=== PATIENT | male | born 1985 | race Caucasian/White ===

== ENCOUNTER 2022-10-15 14:24 | Outpatient (CLI) | payer MEDICARE, MEDICAID, SELFPAY ==
--- NOTE | 2022-10-15 15:00 | CRLHL7_ITS ---
For Patients: As a result of the Century Cures Act, medical imaging exams and procedure reports are released immediately into your electronic medical record. You may view this report before your referring provider. If you have questions, please contact your health care provider. Indication: BILAT BACK PAIN. HX OF STONES Technique: Noncontrast CT abdomen and pelvis Please note that all CT scans at this facility use dose modulation, iterative reconstruction, and/or weight-based dosing when appropriate to reduce radiation dose to as low as reasonably achievable. Comparison: 09/02/2021 Findings: Lung bases are clear. Stable hiatal hernia measuring 5 cm. Adrenal glands normal. Normal spleen. Diffuse low attenuation of the hepatic parenchyma is similar. Multiple noncalcified gallstones are present within the gallbladder lumen measuring up to 9 millimeters. No biliary obstruction. The pancreas is normal. Punctate calcification within the midportion of the right kidney measuring 3 millimeters. 3 millimeter stones also present in the upper pole of the right kidney. Nonobstructing stone in the upper pole of the left kidney is present measuring 3 millimeters. Additional stone in the midportion measuring 3 millimeters. Punctate 1-2 millimeter stones in the lower pole of the left kidney. No ureteral stone. No hydronephrosis or hydroureter. No periureteral or perinephric stranding. No bladder stone. Prostate calcifications. No bowel obstruction or free air. No free fluid or abscess. No evidence of diverticulitis. The appendix is within normal limits. Normal small bowel. Food products present within the stomach. No intra-abdominal or intrapelvic adenopathy. A few scattered bone islands are present in the pelvis. Impression: Multiple bilateral punctate nonobstructing renal stones measuring up to 3 millimeters. Chronic cholelithiasis. Hepatic steatosis. Please note that all CT scans at this facility use dose modulation, iterative reconstruction, and/or weight-based dosing when appropriate to reduce radiation dose to as low as reasonably achievable. Dictated by Deondre Rivas MD @ 10/16/2022 9:17:01 AM (Electronically Signed)
== END 2022-10-15 14:25 | disposition home or self-care (01) ==
LOC: CT 14:26
PROVIDERS: PCP Family Medicine; Visit Provider Family Medicine
DX: M54.9 Dorsalgia, unspecified (principal); N20.0 Calculus of kidney; K80.20 Calculus of gallbladder without cholecystitis without obstruction; K76.0 Fatty (change of) liver, not elsewhere classified
CPT/HCPCS: 74176

== ENCOUNTER 2022-12-11 14:17 | Outpatient (CLI) | payer MEDICARE, MEDICAID, SELFPAY | END 2022-12-11 14:18 | disposition home or self-care (01) | LOC: AMB 12-19 20:57 | PROVIDERS: PCP Family Medicine; Visit Provider Family Medicine | DX: R07.89 Other chest pain (principal) | CPT/HCPCS: A0998 ==

== ENCOUNTER 2022-12-11 15:13 | Outpatient (CLI) | payer MEDICARE, MEDICAID, SELFPAY | END 2022-12-11 15:14 | disposition home or self-care (01) | LOC: AMB 12-12 13:24 | PROVIDERS: PCP Family Medicine; Visit Provider Family Medicine | DX: R06.09 Other forms of dyspnea (principal) | CPT/HCPCS: A0425; A0427; A0998 ==

== ENCOUNTER 2022-12-11 15:52 | Emergency (ER) | payer MEDICARE, MEDICAID, SELFPAY ==
[2022-12-11 15:58] VITALS: BP 114/82; PULSE 89; RESP 18; TEMP 36.8; O2SAT 96; BMI 29.4
--- NOTE | 2022-12-11 18:50 | PC.NURSE ---
pt signed refusal of care, left ER with brother
[2022-12-11 19:20] LABS: Troponin, Point-of-Care* 0.03 ng/ml (0.01-0.04)
== END 2022-12-11 18:43 | disposition left against medical advice (07) ==
LOC: ED 18:44
PROVIDERS: PCP Family Medicine
DX: Z53.21 Procedure and treatment not carried out due to patient leaving prior to being seen by health care provider (principal)
CPT/HCPCS: 84484; 93005

== ENCOUNTER 2022-12-13 09:30 | Outpatient (CLI) | payer MEDICARE, MEDICAID, SELFPAY | END 2022-12-13 09:31 | disposition home or self-care (01) | LOC: AMB 12-14 11:24 | PROVIDERS: PCP Family Medicine; Visit Provider Family Medicine | DX: R07.89 Other chest pain (principal) | CPT/HCPCS: A0425; A0427 ==

== ENCOUNTER 2023-04-09 14:25 | Outpatient (CLI) | payer MEDICARE, MEDICAID, SELFPAY ==
--- NOTE | 2023-04-09 15:00 | CRLHL7_ITS ---
For Patients: As a result of the Century Cures Act, medical imaging exams and procedure reports are released immediately into your electronic medical record. You may view this report before your referring provider. If you have questions, please contact your health care provider. Indication: LT LATERAL WRIST LUMP W/PAIN Technique: Grayscale and color Doppler ultrasound of the left lateral wrist performed. Comparison: None Findings: There is a cystic anechoic structure within the area of concern measuring 1.4 x 0.9 x 0.7 cm. This is located adjacent to the radial artery and vein. Impression: 1.4 x 0.9 x 0.7 cm nonvascular cyst in the left lateral wrist soft tissues. Dictated by Deondre Rivas MD @ 04/09/2023 3:37:48 PM (Electronically Signed)
== END 2023-04-09 14:26 | disposition home or self-care (01) ==
LOC: US 14:27
PROVIDERS: PCP Family Medicine; Visit Provider Surgery
DX: M79.89 Other specified soft tissue disorders (principal); M25.532 Pain in left wrist
CPT/HCPCS: 76882

== ENCOUNTER 2023-10-24 11:26 | Outpatient (CLI) | payer MEDICARE, MEDICAID, SELFPAY | END 2023-10-24 11:27 | disposition home or self-care (01) | PROVIDERS: PCP Family Medicine; Visit Provider Family Medicine | DX: I10 Essential (primary) hypertension (principal) | CPT/HCPCS: 80048; 85025 ==

== ENCOUNTER 2024-04-24 16:35 | Outpatient (CLI) | payer MEDICARE, MEDICAID, SELFPAY ==
[2024-04-28 22:17] LABS: Calculi Mass 28 mg
== END 2024-04-24 16:36 | disposition home or self-care (01) ==
PROVIDERS: PCP Family Medicine; Visit Provider Family Medicine
DX: Z00.00 Encounter for general adult medical examination without abnormal findings (principal); N20.0 Calculus of kidney; I10 Essential (primary) hypertension; N50.819 Testicular pain, unspecified; Z13.6 Encounter for screening for cardiovascular disorders
CPT/HCPCS: 80048; 80061; 82365

== ENCOUNTER 2024-05-13 03:40 | Outpatient (CLI) | payer MEDICARE, MEDICAID, SELFPAY | END 2024-05-13 03:41 | disposition home or self-care (01) | LOC: AMB 05-16 05:32 | PROVIDERS: PCP Family Medicine; Visit Provider Family Medicine | DX: R10.9 Unspecified abdominal pain (principal) | CPT/HCPCS: A0425; A0433 ==

== ENCOUNTER 2024-05-13 04:09 | Emergency (ER) | payer MEDICARE, MEDICAID, SELFPAY ==
--- NOTE | 2024-05-13 04:17 | ED_ITS ---
HPI - General Adult General Time Seen by Provider: 04:17 Date Seen: 05/13/24 Chief complaint: Flank Pain Stated complaint: Kidney pain Time Seen by Provider: 05/13/24 04:17 Source: patient, EMS, RN notes reviewed and old records reviewed Mode of arrival: ambulatory Limitations: no limitations History of Present Illness HPI narrative: 39-year-old male who comes in today with flank pain. Patient notes a couple hours of right flank pain, no dysuria, no fever. Has not taken anything for this. Nausea without vomiting. Related Data Previous Rx's ?Medication ?Instructions ?Recorded metoprolol succinate 100 mg 100 mg PO QDAY #90 tabs 04/24/24 tablet,extended release 24 hr Allergies Allergy/AdvReac Type Severity Reaction Status Date / Time lisinopril Allergy Severe chest Verified 04/24/24 16:20 pain, blurred vision codeine Allergy Unknown Verified 04/24/24 16:20 ibuprofen Allergy Unknown Anal Verified 04/24/24 16:20 Bleeding haloperidol [From Haldol] Allergy Verified 04/24/24 16:20 [facility] Medical History (Updated 05/13/24 @ 04:47 by Rui Leon MD) Primary hypertension ?I10 - Essential (primary) hypertension (ICD-10) MICHELLE (generalized anxiety disorder) ?F41.1 - Generalized anxiety disorder (ICD-10) Chronic constipation ?K59.09 - Other constipation (ICD-10) Tobacco abuse ?Z72.0 - Tobacco use (ICD-10) Scoliosis ?M41.9 - Scoliosis, unspecified (ICD-10) History of prostatitis ?Z87.438 - Personal history of other diseases of male genital organs (ICD-10) History of depression ?Z86.59 - Personal history of other mental and behavioral disorders (ICD-10) Gastroesophageal reflux disease ?K21.9 - Gastro-esophageal reflux disease without esophagitis (ICD-10) Dental caries ?K02.9 - Dental caries, unspecified (ICD-10) Calculus of kidney ?N20.0 - Calculus of kidney (ICD-10) Autism spectrum disorder ?F84.0 - Autistic disorder (ICD-10) Surgical History (Updated 04/18/23 @ 13:32 by Cathy Soler) H/O retained foreign body fully removed (03/13/21) ?Z87.821 - Personal history of retained foreign body fully removed (ICD-10) Status post tonsillectomy and adenoidectomy ?Z90.89 - Acquired absence of other organs (ICD-10) History of cystoscopy ?Z98.890 - Other specified postprocedural states (ICD-10) Family History (Updated 09/20/22 @ 09:39 by Mara Oreilly) Mother Diabetes Father Prostate cancer Social History (Updated 02/08/24 @ 18:59 by Deondre Treadwell MD) Narrative: single, smoker, no EtOH, does not drive, lives with mom Smoking Status: Current every day smoker Little interest or pleasure in doing things: several days Feeling down, depressed, or hopeless: not at all Exam Narrative: Exam Narrative: General: Well-developed and well-nourished, no acute distress Head: Atraumatic and normocephalic Eyes: Pupils are equal reactive, extraocular motions intact, conjunctiva clear ENT: External nose and ears are normal, posterior pharynx without erythema or exudate Neck: No midline cervical tenderness, full spontaneous range of motion the neck, trachea midline, no adenopathy Heart: Regular rate and rhythm no murmurs or thrills Lungs: Clear to auscultation bilaterally without wheezes or crackles Abdomen: Soft, nontender, nondistended with active bowel sounds. Right CVA tenderness Musculoskeletal: No tenderness, deformity, or edema Neurologic: Awake, alert, and oriented x3, no gross focal neurologic deficits, cranial nerves intact as tested Psych: Mood and affect are appropriate Skin: No rashes Const: Vital Signs, click to edit/add: Vital Signs - 24 hr 05/13/24 04:24 05/13/24 04:25 Temperature 97.7 F 98.1 F Pulse Rate [Pulse Oximeter] 73 Respiratory Rate 18 Blood Pressure [Ri ght Upper Arm] 152/110 H Pulse Oximetry 95 Oxygen Delivery Me thod Room Air Course Course ED Course: Patient seen examined, reviewed prior clinic visit from April 24 which was for kidney stone, previously had been admitted to [facility] and at the time of the visit on April 24 had recently passed a stone. CT scan ordered independently interpreted by me with stone in the renal pelvises bilaterally as well as left-sided hydronephrosis and hydroureter with a 3-4 mm stone in the mid ureter on the right. Reevaluation(s) Time of Reevaluation #1: 05:28 Reevaluation #1: CBC and basic panel in panel interpreted by me negative for acute findings. Vital Signs Vital signs: Initial Vital Signs Temperature 97.7 F 05/13/24 04:24 Temperature Source Temporal Artery Scan 05/13/24 04:24 Pulse Rate 73 05/13/24 04:24 Respiratory Rate 18 05/13/24 04:24 Blood Pressure 152/110 H 05/13/24 04:24 Blood Pressure Mean 124 H 05/13/24 04:24 Blood Pressure Position Sitting 05/13/24 04:24 Pulse Oximetry 95 05/13/24 04:24 Oxygen Delivery Method Room Air 05/13/24 04:24 Vital Signs Temperature 97.7 F 05/13/24 04:24 Pulse Rate 73 05/13/24 04:24 Respiratory Rate 18 05/13/24 04:24 Blood Pressure 152/110 H 05/13/24 04:24 Pulse Oximetry 95 05/13/24 04:24 Oxygen Delivery Method Room Air 05/13/24 04:24 Temperature 98.1 F 05/13/24 04:25 Pulse Rate 73 05/13/24 04:24 Respiratory Rate 18 05/13/24 04:24 Blood Pressure 152/110 H 05/13/24 04:24 Pulse Oximetry 95 05/13/24 04:24 Oxygen Delivery Method Room Air 05/13/24 04:24 Medications Administered Medications: Discontinued Medications Generic Name Dose Route Start Last Admin Trade Name Freq PRN Reason Stop Dose Admin Ketorolac Tromethamine 15 mg 05/13/24 04:19 05/13/24 04:25 Ketorolac 15 Mg/Ml Inj IVP 05/13/24 04:20 15 mg ONCE ONE Administration Medical Decision Making Lab Data Labs: Lab Results 05/13/24 05/13/24 Range/Units 04:15 04:45 WBC 10.95 (4.50-11.00) K/uL RBC 4.75 (4.30-5.90) m/uL Hgb 14.2 (13.5-17.5) gm/dL Hct 42.6 (37.0-53.0) % MCV 90 (80-100) fL MCH 30 (26-34) pg MCHC 33 (32-36) gm/dL RDW Coeff of Lesley 11.9 (11.5-15.5) % Plt Count 294 (140-440) K/uL Neut % (Auto) 79.4 H (42.0-72.0) % Lymph % (Auto) 14.2 L (20-44) % Conway % (Auto) 3.5 (0.0-11.0) % Eos % (Auto) 1.8 (0.0-7.0) % Baso % (Auto) 0.2 (0.0-3.0) % Neut # (Auto) 8.70 H (1.7-7.0) K/uL Lymph # (Auto) 1.60 (0.90-2.90) K/uL Conway # (Auto) 0.40 (0.00-0.90) K/UL Eos # (Auto) 0.20 (0.00-0.50) K/uL Baso # (Auto) 0.02 (0.00-0.30) K/uL Abs Immat Gran (auto) 0.10 (0.00-0.30) K/uL Imm/Tot Granulo (auto) 0.9 % Sodium 138 (135-149) mmol/L Potassium 4.3 (3.6-5.1) mmol/L Chloride 108 (96-114) mmol/L Carbon Dioxide 24 (20-32) mmol/L Anion Gap 6 L (7-15) mEq/L BUN 15 (5-24) mg/dL Creatinine 0.8 (0.5-1.5) mg/dL Estimated Creat Clear 118.20 Estimated GFR 117 ml/min Glucose 113 (60-115) mg/dL Calcium 8.4 (8.4-10.6) mg/dL Urine Color Yellow (Yellow) Urine Appearance Slightly Cloudy A (Clear) Urine pH 5.5 (5.0-8.5) Ur Specific Patterson >= 1.030 (1.000-1.030) Urine Protein 1+ A (Negative) Urine Glucose (UA) Negative (Negative) Urine Ketones Negative (Negative) Urine Blood 3+ A (Negative) Urine Nitrite Negative (Negative) Urine Bilirubin Negative (Negative) Urine Urobilinogen 0.2 (0.2-1.0) Ur Leukocyte Esterase Negative (Negative) Urine RBC 10-25 A (0-2) Urine WBC 2-5 (0-5) Ur Squamous Epith Cells Moderate A (None-Few) Urine Bacteria Few A (None) Discharge Plan Discharge Clinical Impression: Calculus of right ureter Patient Disposition: Home, Self-Care Condition: Stable Instructions: Ureteral Stones (ED) Additional Instructions: Take Toradol every six hours alternating with Tylenol every six hours Take oxycodone as needed for pain not controlled with Tylenol and Toradol Call [facility] ([phone] or [phone]) or [facility] ( ) to schedule an appointment for follow-up in 2-3 days Follow-up with your primary care provider this week as well Activity Level: Activity as Tolerated Discharge Diet: Regular Prescriptions: No Action metoprolol succinate 100 mg tablet extended release 24 hr 100 mg PO QDAY Qty: 90 1RF Follow Up/Referrals: Deondre Treadwell MD [Primary Care Provider] - Stand Alone Forms: [employer] Info Instructions
--- NOTE | 2024-05-13 04:19 | CRLHL7_ITS ---
For Patients: As a result of the Century Cures Act, medical imaging exams and procedure reports are released immediately into your electronic medical record. You may view this report before your referring provider. If you have questions, please contact your health care provider. INDICATION: FLANK PAIN, HX OF KIDNEY STONES TECHNIQUE: CT abdomen and pelvis without contrast, stone protocol. COMPARISON: None. FINDINGS: Kidney/ureters: Right-sided obstructive uropathy with a 4 millimeter ureteral calculus within the mid ureter, resulting in moderate hydroureteronephrosis and periureteral/perinephric inflammation. Additional small bilateral renal calculi are noted. Liver/gallbladder/bile ducts: The liver is normal in size, shape and attenuation. Cholelithiasis. No biliary dilatation. Spleen/pancreas/adrenal glands: The spleen, adrenal glands and pancreas are within normal limits. GI tract: No bowel obstruction. Normal appendix. Abdominal wall/omentum/peritoneum: No free air or significant free fluid. No mass or inflammation. Tiny fat containing umbilical hernia. Lymph nodes: No lymphadenopathy. Pelvis: Prostate calcifications. Lower chest: Unremarkable. IMPRESSION: 1. Right-sided obstructive uropathy with a 4 millimeter ureteral calculus within the mid ureter, resulting in moderate hydroureteronephrosis and periureteral/perinephric inflammation. Additional small bilateral renal calculi are noted. 2. Cholelithiasis. Please note that all CT scans at this facility use dose modulation, iterative reconstruction, and/or weight-based dosing when appropriate to reduce radiation dose to as low as reasonably achievable. Dictated by Bib Soto MD @ 05/13/2024 5:41:45 AM (Electronically Signed)
[2024-05-13 04:23] LABS: Appearance Urine Slightly Cloudy (Clear); Bilirubin Urine Negative (Negative); Blood Urine 3+ (Negative); Color Urine Yellow (Yellow); Glucose Urine Negative (Negative); Ketones Urine Negative (Negative); Leukocyte Esterase Urine Negative (Negative); Nitrite Urine Negative (Negative); Protein Urine 1+ (Negative); Specific Gravity Urine >= 1.030 (1.000-1.030); Urobilinogen Urine 0.2 (0.2-1.0); pH Urine 5.5 (5.0-8.5)
[2024-05-13 04:24] VITALS: BP 152/110; PULSE 73; RESP 18; TEMP 36.5; O2SAT 95; BMI 31.3
[2024-05-13 04:25] VITALS: TEMP 36.7
[2024-05-13] MEDS: KETOROLAC 15 MG/ML inj IVP (04:25)
[2024-05-13 04:38] LABS: Bacteria Urine Few; Squamous Epithelial Cell Urine Moderate (None-Few)
[2024-05-13 04:52] LABS: Basophils Absolute Auto 0.02 K/uL (0.00-0.30); Basophils Percent Auto 0.2 % (0.0-3.0); Eosinophils Percent Auto 1.8 % (0.0-7.0); Hematocrit 42.6 % (37.0-53.0); Hemoglobin* 14.2 gm/dL (13.5-17.5); Immature Granulocytes Pct Auto 0.9 %; Lymphocytes Percent Auto 14.2 % (20-44); Mean Corpuscular HGB Conc 33 gm/dL (32-36); Mean Corpuscular Hemoglobin 30 pg (26-34); Mean Corpuscular Volume 90 fL (80-100); Monocytes Percent Auto 3.5 % (0.0-11.0); Neutrophils Percent Auto 79.4 % (42.0-72.0); Platelet Count* 294 K/uL (140-440); RDW Coefficient of Variation % 11.9 % (11.5-15.5); Red Blood Count 4.75 m/uL (4.30-5.90); White Blood Count* 10.95 K/uL (4.50-11.00)
[2024-05-13 04:56] LABS: Slide Review Reflex No
[2024-05-13 05:00] VITALS: BP 146/102; PULSE 69; RESP 16; O2SAT 96
[2024-05-13 05:05] LABS: Chloride* 108 mmol/L (96-114); Sodium* 138 mmol/L (135-149)
[2024-05-13 05:06] LABS: Potassium* 4.3 mmol/L (3.6-5.1)
[2024-05-13 05:08] LABS: Anion Gap 6 mEq/L (7-15); Carbon Dioxide* 24 mmol/L (20-32); Creatinine* 0.8 mg/dL (0.5-1.5); Estimated Glomerular Filt Rate 117 ml/min
[2024-05-13 05:09] LABS: Blood Urea Nitrogen* 15 mg/dL (5-24); Calcium* 8.4 mg/dL (8.4-10.6); Glucose* 113 mg/dL (60-115)
[2024-05-13 05:30] VITALS: PULSE 72; RESP 16; O2SAT 98
[2024-05-13 05:55] VITALS: O2SAT 97
== END 2024-05-13 08:13 | disposition home or self-care (01) ==
LOC: ED 04:53
PROVIDERS: Emergency Provider Family Medicine; PCP Family Medicine
DX: N20.1 Calculus of ureter (principal)
CPT/HCPCS: 36415; 74176; 80048; 81001; 85025; 87086; 94761; 96374; 99284; J1885

== ENCOUNTER 2025-05-02 11:31 | Outpatient (CLI) | payer MEDICARE, MEDICAID, SELFPAY | END 2025-05-02 11:32 | disposition home or self-care (01) | PROVIDERS: PCP Family Medicine; Visit Provider Internal Medicine | DX: R10.9 Unspecified abdominal pain (principal); R30.0 Dysuria | CPT/HCPCS: A0425; A0427 ==

== ENCOUNTER 2025-05-02 12:03 | Emergency (ER) | payer MEDICARE, MEDICAID, SELFPAY ==
--- OUTSIDE RECORDS SUMMARY | 2025-05-02 12:05 | XMS_ITS | Clinical Summary ---
Author Organization [facility] Address [address] [place] [address] Care Team Providers Care [employer] Name Role Phone Clinics, Leigha Primary Care Provider [phone] Clinics, Enti Unavailable Allergies Active Allergy Reactions Criticality Noted Date Comments Codeine *Unknown 08/26/2015 Ibuprofen Bleeding 08/26/2015 Medications CLONIDINE ORAL Take by mouth. Active cloNIDine HCl (CATAPRES) 0.1 mg tablet 09/12/20 15 Active pramipexole (MIRAPEX) 0.125 mg tablet 08/18/20 15 Active oxyCODONE-acetamin ophen, 5-325 mg, (PERCOCET) 5-325 mg per tabletIndications: Bilateral low back pain, with sciatica presence unspecified Take 1-2 tablets by mouth every 6 hours if needed for Pain. Max acetaminophen dose: 4000mg in 24 hrs. 10 tablet 0 11/22/20 15 Active ondansetron (ZOFRAN ODT) 4 mg disintegrating tabletIndications: Nausea and vomiting, unspecified intactability, vomiting of unspecified type Place 1 tablet on the tongue every 8 hours if needed for Nausea/Vomiting. 15 tablet 0 11/22/20 15 Active lisinopril-hydroch lorothiazide (10-12.5 mg) tablet (PRINZIDE; ZESTORETIC) Take 1 Tablet by mouth once daily. 11/21/20 22 Active omeprazole (PRILOSEC) 20 mg Delayed-Release capsule Take 20 mg by mouth once daily before a meal. 10/25/20 22 Active cyclobenzaprine (FLEXERIL) 10 mg tabletIndications: Acute pain of right shoulder Take 1 Tablet (10 mg) by mouth 3 times daily if needed for Muscle Spasm. 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 Gender Identity Not on file Sexual Orientation Not on file Obstetrics History Last Filed Vital Signs Vital Sign Reading Time Taken Comments Blood Pressure 115/83 12/13/2022 11:01 AM PRODUCT ACCOUNTANT Pulse 79 12/13/2022 11:55 AM PRODUCT ACCOUNTANT Temperature 36.8 C (98.2 F) 12/13/2022 10:16 AM PRODUCT ACCOUNTANT Respiratory Rate 16 12/13/2022 10:16 AM PRODUCT ACCOUNTANT Oxygen Saturation 99% 12/13/2022 11:55 AM PRODUCT ACCOUNTANT Inhaled Oxygen Concentration - - Weight 87.5 kg (193 lb) 12/13/2022 10:16 AM PRODUCT ACCOUNTANT Height 170.2 cm (5' 7) 12/13/2022 10:16 AM PRODUCT ACCOUNTANT Body Mass Index 30.23 12/13/2022 10:16 AM PRODUCT ACCOUNTANT Plan of Treatment Health Maintenance Due Date Last Done Comments Tdap 1998 Depression screening for age 12+ 1999 HIV for age 15-65 2002 BMI (ht and wt on same day) for age 18+ 2005 Hepatitis C screening for ag e 18-79 2005 Hepatitis B series for 19+ ( 1 of 3 - 19+ 3-dose series) 2006 Tetanus booster 2007 Lipids for age 35-44 2022 COVID-19 vaccine series (2023- season) 2024 Influenza Vaccine (Season Ended) 2025 Pneumococcal series for age 6-49 Aged Out No longer eligible based on patient's age to complete this topic Insurance [address] [place] [id number] MEDICARE PB ONLY [address] [place] [id number] MEDICARE PART B HB ONLY [facility] Care Teams As[employer] Relationship Specialty Start Date End Date Clinics, Leigha PCP - General 08/26/15 Clinics, Leigha 08/26/15
[2025-05-02 12:08] VITALS: BP 155/99; PULSE 80; RESP 20; TEMP 36.4; O2SAT 96; BMI 27.4
--- NOTE | 2025-05-02 12:17 | ED.GENADULT ---
HPI - General Adult General Chief complaint: Flank Pain Stated complaint: L flank pain Time Seen by Provider: 05/02/25 12:11 History of Present Illness HPI narrative: Patient is a 40-year-old gentleman with a history of kidney stones who presents with left flank pain for 48 hours. His pain is severe and radiates to his groin. He has had some mild nausea and vomiting but no diarrhea no fever no fevers no chills no night sweats no cough no shortness of breath. Pain is consistent with previous episodes of renal lithiasis. Related Data Previous Rx's ?Medication ?Instructions ?Recorded amoxicillin 875 mg tablet 875 mg PO BID #20 tabs 10/20/24 nabumetone 500 mg tablet 500 mg PO BID #60 tabs 10/20/24 lorazepam 1 mg tablet 1 mg PO QDAY PRN dental appt #5 02/04/25 tabs metoprolol succinate 100 mg 100 mg PO QDAY #90 tabs 03/29/25 tablet,extended release 24 hr Allergies Allergy/AdvReac Type Severity Reaction Status Date / Time lisinopril Allergy Severe chest Verified 10/20/24 13:01 pain, blurred vision codeine Allergy Unknown Verified 10/20/24 13:01 ibuprofen Allergy Unknown Anal Verified 10/20/24 13:01 Bleeding haloperidol (From Haldol) Allergy Verified 10/20/24 13:01 Review of Systems Status of ROS: Reports: 10 or more systems reviewed and unremarkable except as noted in History and below [facility] Medical History Primary hypertension ?I10 - Essential (primary) hypertension (ICD-10) MICHELLE (generalized anxiety disorder) ?F41.1 - Generalized anxiety disorder (ICD-10) Chronic constipation ?K59.09 - Other constipation (ICD-10) Tobacco abuse ?Z72.0 - Tobacco use (ICD-10) Scoliosis ?M41.9 - Scoliosis, unspecified (ICD-10) History of prostatitis ?Z87.438 - Personal history of other diseases of male genital organs (ICD-10) History of depression ?Z86.59 - Personal history of other mental and behavioral disorders (ICD-10) Gastroesophageal reflux disease ?K21.9 - Gastro-esophageal reflux disease without esophagitis (ICD-10) Dental caries ?K02.9 - Dental caries, unspecified (ICD-10) Calculus of kidney ?N20.0 - Calculus of kidney (ICD-10) Autism spectrum disorder ?F84.0 - Autistic disorder (ICD-10) Surgical History H/O retained foreign body fully removed (03/13/21) ?Z87.821 - Personal history of retained foreign body fully removed (ICD-10) Status post tonsillectomy and adenoidectomy ?Z90.89 - Acquired absence of other organs (ICD-10) History of cystoscopy ?Z98.890 - Other specified postprocedural states (ICD-10) Family History Mother Diabetes Father Prostate cancer Social History Narrative: single, smoker, no EtOH, does not drive, lives with mom What is your current living situation?: I presently have a place to live Problems where you live: no known problems In the past 12 months, utilities in danger of being shut off: no In past 12 months, lack of transportation kept you from medical appts, meetings, work, or getting things needed for daily living: yes In the past 12 mos, have been you worried that your food would run out before you had money to buy more?: often true In the past 12 mos, the food you bought just didn't last and you didn't have money to buy more?: often true Smoking Status: Current every day smoker How often does anyone, including family, friends and others, physically hurt you: never How often does anyone, including family, friends and others, insult or talk down to you: never How often does anyone, including family, friends and others, threaten you with harm: never How often does anyone, including family, friends and others, scream or curse at you: never Health Related Social Needs: food insecurity (Z59.41) and transportation insecurity (Z59.82) Exam Narrative: Exam Narrative: EXAM GENERAL: Patient appears comfortable and well. EYES: No scleral icterus. LYMPH: No supraclavicular or cervical lymphadenopathy. SKIN: Visible skin seen during exam normal or with benign process only. EXT: No dependent lower extremity pedal edema. HEART: Regular rate and rhythm with no murmurs, rubs, or gallops. LUNGS: Clear to auscultation bilaterally with no crackles or wheezes. ABD: Soft, non tender, non distended. PSYCH: Good eye contact, speech is not pressured. Const: Vital Signs, click to edit/add: Vital Signs - 24 hr 05/02/25 12:08 Temperature 97.6 F Pulse Rate [Pulse Oximeter] 80 Respiratory Rate 20 Blood Pressure [Ri ght Upper Arm] 155/99 H Pulse Oximetry 96 Oxygen Delivery Me thod Room Air Course Course ED Course: Patient seen examined. CT of the abdomen and pelvis without contrast. CBC comprehensive metabolic panel lipase ordered. Normal saline 1 L Zofran 4 mg given IV. Vital Signs Vital signs: Initial Vital Signs Temperature 97.6 F 05/02/25 12:08 Temperature Source Temporal Artery Scan 05/02/25 12:08 Pulse Rate 80 05/02/25 12:08 Pulse Rhythm Regular 05/02/25 12:08 Respiratory Rate 20 05/02/25 12:08 Blood Pressure 155/99 H 05/02/25 12:08 Blood Pressure Mean 117 H 05/02/25 12:08 Blood Pressure Position Sitting 05/02/25 12:08 Pulse Oximetry 96 05/02/25 12:08 Oxygen Delivery Method Room Air 05/02/25 12:08 Vital Signs Temperature 97.6 F 05/02/25 12:08 Pulse Rate 80 05/02/25 12:08 Respiratory Rate 20 05/02/25 12:08 Blood Pressure 155/99 H 05/02/25 12:08 Pulse Oximetry 96 05/02/25 12:08 Oxygen Delivery Method Room Air 05/02/25 12:08 Temperature 97.6 F 05/02/25 12:08 Pulse Rate 80 05/02/25 12:08 Respiratory Rate 20 05/02/25 12:08 Blood Pressure 155/99 H 05/02/25 12:08 Pulse Oximetry 96 05/02/25 12:08 Oxygen Delivery Method Room Air 05/02/25 12:08 Medical Decision Making MDM Narrative Medical decision making narrative: Patient is a 40-year-old gentleman with history of kidney stones who comes in today with left flank pain. Workup is unremarkable including a negative CT scan. I did this time provide reassurance and recommended Tylenol ice and follow-up as needed. Likely is symptoms are due to musculoskeletal strain. We did rule out kidney stone as well as pulmonary embolism with a D-dimer. Chest x-ray and EKG are normal as well. Lab Data Labs: Lab Results 05/02/25 05/02/25 Range/Units 12:26 13:45 WBC 6.10 (4.50-11.00) K/uL RBC 4.90 (4.30-5.90) m/uL Hgb 15.1 (13.5-17.5) gm/dL Hct 45.2 (37.0-53.0) % MCV 92 (80-100) fL MCH 31 (26-34) pg MCHC 33 (32-36) gm/dL RDW Coeff of Lesley 11.8 (11.5-15.5) % Plt Count 182 (140-440) K/uL Neut % (Auto) 64.8 (42.0-72.0) % Lymph % (Auto) 27.0 (20-44) % [place] % (Auto) 4.9 (0.0-11.0) % Eos % (Auto) 2.8 (0.0-7.0) % Baso % (Auto) 0.3 (0.0-3.0) % Neut # (Auto) 3.95 (1.7-7.0) K/uL Lymph # (Auto) 1.65 (0.90-2.90) K/uL [place] # (Auto) 0.30 (0.00-0.90) K/UL Eos # (Auto) 0.17 (0.00-0.50) K/uL Baso # (Auto) 0.02 (0.00-0.30) K/uL Abs Immat Gran (auto) 0.01 (0.00-0.30) K/uL Imm/Tot Granulo (auto) 0.2 % D-Dimer Quant (PE/DVT) < 0.27 (0.00-0.50) ug/ml Sodium 139 (135-149) mmol/L Potassium 4.6 (3.6-5.1) mmol/L Chloride 104 (96-114) mmol/L Carbon Dioxide 28 (20-32) mmol/L Anion Gap 7 (7-15) mEq/L BUN 12 (5-24) mg/dL Creatinine 0.9 (0.5-1.5) mg/dL Estimated Creat Clear 104.05 Estimated GFR 112 ml/min Glucose 100 (60-115) mg/dL Calcium 8.8 (8.4-10.6) mg/dL Total Bilirubin 0.7 (0.1-1.5) mg/dL AST 23 (12-35) U/L ALT 14 (4-50) U/L Alkaline Phosphatase 58 (40-150) U/L Total Protein 7.0 (6.0-8.3) g/dL Albumin 4.2 (3.3-5.0) g/dL Urine Color Yellow (Yellow) Urine Appearance Clear (Clear) Urine pH 6.0 (5.0-8.5) Ur Specific [place] 1.010 (1.000-1.030) Urine Protein Negative (Negative) Urine Glucose (UA) Negative (Negative) Urine Ketones Negative (Negative) Urine Blood Negative (Negative) Urine Nitrite Negative (Negative) Urine Bilirubin Negative (Negative) Urine Urobilinogen 0.2 (0.2-1.0) Ur Leukocyte Esterase Negative (Negative) Discharge Plan Discharge Clinical Impression: Strain of chest wall Patient Disposition: Home, Self-Care Condition: Stable Instructions: Chest Wall Pain (ED) Additional Instructions: Tylenol 1000 mg 3 times a day as needed Ice Follow-up as needed with her primary doctor. Activity Level: No Restrictions Discharge Diet: Regular Prescriptions: No Action amoxicillin 875 mg tablet 875 mg PO BID Qty: 20 0RF nabumetone 500 mg tablet 500 mg PO BID Qty: 60 0RF lorazepam 1 mg tablet 1 mg PO QDAY PRN (Reason: dental appt) Qty: 5 0RF Rx Instructions: Take 1-2 hours before dental appt metoprolol succinate 100 mg tablet extended release 24 hr 100 mg PO QDAY Qty: 90 0RF Follow Up/Referrals: Deondre Treadwell MD [Primary Care Provider, Family Practice] Stand Alone Forms: MyHealth Info Instructions
--- NOTE | 2025-05-02 12:19 | CRLHL7_ITS ---
For Patients: As a result of the Century Cures Act, medical imaging exams and procedure reports are released immediately into your electronic medical record. You may view this report before your referring provider. If you have questions, please contact your health care provider. INDICATION: Flank pain. Evaluate for kidney stone. TECHNIQUE: Multiplanar CT examination of the abdomen and pelvis was performed without the use of intravenous contrast, renal stone protocol. COMPARISON: CT abdomen pelvis 10/15/2022. FINDINGS: Limited evaluation of the soft tissue organs without the use of intravenous contrast. Lower chest: No focal consolidation. Normal heart size. No pleural effusions or pneumothorax. Suspected hyperinflated lungs. Large hiatal/paraesophageal hernia. Liver: Unremarkable. Gallbladder: Cholelithiasis. No pericholecystic edema. Biliary: Unremarkable. Pancreas: Within normal limits. Spleen: Unremarkable. Adrenal glands: Unremarkable. Renal/ureters/bladder: Normal in size. No obstructive uropathy. No hydronephrosis or obstructive urinary calculi. The evaluation for renal masses without the use of intravenous contrast. The ureters appear unremarkable. The bladder is within normal limits. Pelvis: Unremarkable prostate. Gastrointestinal: No bowel wall thickening or bowel obstruction. Normal appendix. No significant colonic diverticulosis. Mild colonic stool burden. Vasculature: No aortic aneurysm. No significant atherosclerotic calcifications. Lymph nodes: No pathologic lymphadenopathy by size criteria. Peritoneum: No free fluid or pneumoperitoneum. No drainable fluid collections. Abdominal wall/soft tissues: Unremarkable. Bones: No acute osseous abnormalities. Mild degenerative changes of the visualized thoracolumbar spine. IMPRESSION: Limited evaluation without the use of intravenous contrast. 1. No hydronephrosis or obstructive urolithiasis. 2. Large hiatal/paraesophageal hernia. 3. Cholelithiasis without CT evidence of acute cholecystitis. Please note that all CT scans at this facility use dose modulation, iterative reconstruction, and/or weight-based dosing when appropriate to reduce radiation dose to as low as reasonably achievable. Dictated by Corbin Narvaez MD @ 05/02/2025 1:24:51 PM (Electronically Signed)
[2025-05-02 12:35] LABS: Basophils Absolute Auto 0.02 K/uL (0.00-0.30); Basophils Percent Auto 0.3 % (0.0-3.0); Eosinophils Absolute Auto 0.17 K/uL (0.00-0.50); Eosinophils Percent Auto 2.8 % (0.0-7.0); Hematocrit 45.2 % (37.0-53.0); Hemoglobin* 15.1 gm/dL (13.5-17.5); Immature Granulocytes Abs Auto 0.01 K/uL (0.00-0.30); Immature Granulocytes Pct Auto 0.2 %; Lymphocytes Absolute Auto 1.65 K/uL (0.90-2.90); Mean Corpuscular HGB Conc 33 gm/dL (32-36); Mean Corpuscular Hemoglobin 31 pg (26-34); Mean Corpuscular Volume 92 fL (80-100); Monocytes Percent Auto 4.9 % (0.0-11.0); Neutrophils Absolute Auto 3.95 K/uL (1.7-7.0); Neutrophils Percent Auto 64.8 % (42.0-72.0); Platelet Count* 182 K/uL (140-440); RDW Coefficient of Variation % 11.8 % (11.5-15.5)
[2025-05-02 12:37] LABS: Slide Review Reflex No
[2025-05-02 12:53] LABS: Albumin* 4.2 g/dL (3.3-5.0); Chloride* 104 mmol/L (96-114); Potassium* 4.6 mmol/L (3.6-5.1); Sodium* 139 mmol/L (135-149)
[2025-05-02 12:56] LABS: Alanine Aminotransferase* 14 U/L (4-50); Alkaline Phosphatase* 58 U/L (40-150); Anion Gap 7 mEq/L (7-15); Aspartate Amino Transferase* 23 U/L (12-35); Bilirubin Total* 0.7 mg/dL (0.1-1.5); Blood Urea Nitrogen* 12 mg/dL (5-24); Calcium* 8.8 mg/dL (8.4-10.6); Carbon Dioxide* 28 mmol/L (20-32); Creatinine* 0.9 mg/dL (0.5-1.5); Est. Creatinine Clearance* 104.05; Estimated Glomerular Filt Rate 112 ml/min; Glucose* 100 mg/dL (60-115)
--- OUTSIDE RECORDS SUMMARY | 2025-05-02 13:04 | XMS_ITS | CCD ---
Author Organization Unknown Care Team Providers Care Wind Turbine Technician Name Role Phone Engineering Intern, [place] Primary Care Provider Unava ilable Unavailable Chronic Care Management Unavaila ble Summary Purpose DataExchange Insurance Providers Payer name Policy type / Coverage type Covered alliance party ID Effective Begin Date Effective End Date Medicare [place] Medicare Part B [id number] Unknown Unknown [employer] Medicare Part B [id number] Unknown Unknown Family History Family History data not found Medication Administered No Medication Administered data Reason For Visit No Reason For Visit data
--- OUTSIDE RECORDS SUMMARY | 2025-05-02 13:30 | XMS_ITS | CCD ---
Author Organization Unknown Care Team Providers Care Word Processing Supervisor Name Role Phone Active Directory Architect, [place] Primary Care Provider Unava ilable Unavailable Chronic Care Management Unavaila ble Summary Purpose DataExchange Insurance Providers Payer name Policy type / Coverage type Covered democrat ID Effective Begin Date Effective End Date [place] Part B [id number] Unknown Unknown [employer] Medicare Part B [id number] Unknown Unknown Family History Family History data not found Medication Administered No Medication Administered data Reason For Visit No Reason For Visit data
--- OUTSIDE RECORDS SUMMARY | 2025-05-02 13:30 | XMS_ITS | CCD ---
Author Organization Unknown Care Team Providers Care Crane Mechanic Name Role Phone Research Associate, [place] Primary Care Provider Unava ilable Unavailable Chronic Care Management Unavaila ble Summary Purpose DataExchange Insurance Providers Payer name Policy type / Coverage type Covered alliance party ID Effective Begin Date Effective End Date [place] Part [place] [id number] Unknown Unknown [employer] Medicare Part B [id number] Unknown Unknown Family History Family History data not found Medication Administered No Medication Administered data Reason For Visit No Reason For Visit data
--- NOTE | 2025-05-02 13:35 | CRLHL7_ITS ---
For Patients: As a result of the Century Cures Act, medical imaging exams and procedure reports are released immediately into your electronic medical record. You may view this report before your referring provider. If you have questions, please contact your health care provider. INDICATION: Chest Pain TECHNIQUE: Chest radiograph 1 view COMPARISON: None FINDINGS: The sensitivity and specificity of the exam are moderately limited by the patient`s body habitus. Mediastinum: The mediastinum is normal in appearance. The heart silhouette is normal in size and morphology. Lung: Mild pulmonary vascular congestion and perihilar atelectasis is seen. Both lung apices are obscured by the patient`s head and chin. No sign of pleural effusion seen. No pneumothorax is identified. Bone and Soft tissue: Unremarkable for age. IMPRESSION: 1. Mild pulmonary vascular congestion and perihilar atelectasis is seen. Mild interstitial edema can not be entirely excluded. Dictated by Nate Boyle MD @ 05/02/2025 2:05:46 PM Prelim Report By Dr. Nate Boyle @ 05/02/2025 2:05:48 PM ADDENDUM Dictated by: MD @ 05/02/2025 14:05:56 (Electronically Signed)
[2025-05-02 13:55] LABS: Appearance Urine Clear (Clear); Bilirubin Urine Negative (Negative); Blood Urine Negative (Negative); Color Urine Yellow (Yellow); Glucose Urine Negative (Negative); Ketones Urine Negative (Negative); Leukocyte Esterase Urine Negative (Negative); Nitrite Urine Negative (Negative); Protein Urine Negative (Negative); Urobilinogen Urine 0.2 (0.2-1.0)
[2025-05-02 14:27] LABS: D Dimer Quantitative* < 0.27 ug/ml (0.00-0.50)
[2025-05-02 14:48] VITALS: BP 134/78; PULSE 70; RESP 20; TEMP 36.4
== END 2025-05-02 14:49 | disposition home or self-care (01) ==
PROVIDERS: Emergency Provider Internal Medicine; PCP Family Medicine
DX: S29.011A Strain of muscle and tendon of front wall of thorax, initial encounter (principal)
CPT/HCPCS: 36415; 71045; 74176; 80053; 81003; 85025; 85379; 93005; 99283; 99284; 99285

== ENCOUNTER 2025-09-27 15:52 | Outpatient (CLI) | payer MEDICARE, MEDICAID, SELFPAY | END 2025-09-27 15:53 | disposition home or self-care (01) | PROVIDERS: PCP Family Medicine; Visit Provider Family Medicine | DX: I10 Essential (primary) hypertension (principal); R35.0 Frequency of micturition; R53.83 Other fatigue | CPT/HCPCS: 80048; 80061; 84443; 85025; 87086 ==